=== PATIENT | female | born 2000 | race Caucasian/White ===

== ENCOUNTER 2019-02-15 20:36 | Emergency (ER) | payer MEDICAID, OTHER ==
[~2019-02-15] VITALS: Wt 45.6 kg
[2019-02-15 20:44] VITALS: BP 118/69; PULSE 89; RESP 18
[2019-02-15] MEDS ORDERED: IBUPROFEN 600 MG TAB PO ONE (22:00)
[2019-02-16] MEDS ORDERED: IBUP-1542 PO (00:18)
--- NOTE | 2019-02-17 23:48 | ERD ---
ER Documentation Chief Complaint Chief Complaint vomiting/generalize body weakness x 1 day HPI 18yo F presents with multiple complaints. Pt notes 2 episodes of vomiting earlier today with abdominal pain and right shoulder and knee pain s/p mechanical fall. Pt states to have tripped on a box landing on her right knee and then her right shoulder. She denies head trauma or LOC. She admits to feeling dizzy earlier in the day as well. Pt denies fevers, chills, SOB, CP. No cardiac hx, no known medical conditions. ROS All systems reviewed and are negative except as per history of present illness. Medications Home Meds Active Scripts Ibuprofen* (Motrin*) 600 Mg Tab, 600 MG PO Q6H PRN for PAIN AND OR ELEVATED TEMP, #30 TAB Prov:ALEKSANDR GOLDSTEIN PA-C 02/16/19 Allergies Allergies: Coded Allergies: No Known Allergy (Unverified , 02/15/19) PMhx/Soc Medical and Surgical Hx: pt denies Medical Hx, pt denies Surgical Hx Hx Alcohol Use: No Hx Substance Use: No Hx Tobacco Use: No Smoking Status: Never smoker FmHx Family History: No diabetes, No coronary disease, No other Physical Exam Vitals Vital Signs Date Temp Pulse Resp B/P (MAP) Pulse Ox O2 O2 Flow FiO2 Time Delivery Rate 02/15/19 97.4 89 18 118/69 98 20:44 (85) Physical Exam Constitutional: Well developed. Well nourished. No acute distress Head/Eyes: Atraumatic. Normocephalic. PERRL. EOMI ENT: Moist mucous membranes. Voice normal. Neck: Supple. No lymphadenopathy Cardiovascular: Regular rate and rhythm. No murmurs, rubs, or gallops. Distal pulses intact Respiratory: No respiratory distress. Normal breath sounds. No wheezes, rales, or rhonchi. Abdominal: Soft. Non-tender. No guarding, rebound, or rigidity. Non-distended. Extremities: No deformity. No clubbing, cyanosis or edema. Equal pulses x 4. Full PROM of the right shoulder with no crepitus.Sensation intact to radial, medial, ulnar distribution. Able to wiggle fingers. Full PROM of the Right knee with positive TTP of the tibial plateau. Visible edema and ecchymosis. Able to bear weight. Skin: Dry. No rashes. Warm Neurological: Alert and oriented x3. Appropriate speech, mood and affect. Face is symmetric. Speech is normal. CN II-XII intact. Moves all extremities equally. Ambulates with a strong, steady gait. Psychiatric: Normal mood. Normal affect Result Diagram: 02/15/19220802/15/192208 Results 24 hrs Laboratory Tests Test 02/15/19 22:09 White Blood Count 7.1 10^3/ul Red Blood Count 4.27 10^6/ul Hemoglobin 11.5 g/dl Hematocrit 36.8 % Mean Corpuscular Volume 86.2 fl Mean Corpuscular Hemoglobin 26.9 pg Mean Corpuscular Hemoglobin Concent 31.3 g/dl Red Cell Distribution Width 15.5 % Platelet Count 288 10^3/UL Mean Platelet Volume 10.4 fl Immature Granulocytes % 0.100 % Neutrophils % 45.3 % Lymphocytes % 43.2 % Monocytes % 7.5 % Eosinophils % 3.1 % Basophils % 0.8 % Nucleated Red Blood Cells % 0.0 /100WBC Immature Granulocytes # 0.010 10^3/ul Neutrophils # 3.2 10^3/ul Lymphocytes # 3.1 10^3/ul Monocytes # 0.5 10^3/ul Eosinophils # 0.2 10^3/ul Basophils # 0.1 10^3/ul Nucleated Red Blood Cells # 0.0 10^3/ul Sodium Level 141 mmol/L Potassium Level 4.2 mmol/L Chloride Level 106 mmol/L Carbon Dioxide Level 26 mmol/L Anion Gap 9 Blood Urea Nitrogen 12 mg/dl Creatinine 0.57 mg/dl Est Glomerular Filtrat Rate mL/min > 60 mL/min Glucose Level 99 mg/dl Calcium Level 9.2 mg/dl Total Bilirubin 0.5 mg/dl Direct Bilirubin 0.00 mg/dl Indirect Bilirubin 0.5 mg/dl Aspartate Amino Transf (AST/SGOT) 27 IU/L Alanine Aminotransferase (ALT/SGPT) 25 IU/L Alkaline Phosphatase 59 IU/L Total Protein 8.3 g/dl Albumin 4.5 g/dl Globulin 3.80 g/dl Albumin/Globulin Ratio 1.18 Lipase 174 U/L Beta HCG, Quantitative < 2.4 mIU/ml Current Medications Medications Dose Sig/Robert Start Time Status Last (Trade) Ordered Route PRN Stop Time Admin Dose Reason Admin Ibuprofen 600 mg ONCE ONCE 02/15/19 DC 02/15/19 (Motrin) PO 22:00 21:58 02/15/19 22:01 Procedures/MDM PROCEDURE: Right shoulder. FINDINGS: There is no fracture, dislocation or bone destruction. The joint spaces are within normal limits. Bone mineralization is within normal limits. There is no radiopaque foreign body or abnormal calcification. IMPRESSION: Unremarkable right shoulder. PROCEDURE: Right knee. FINDINGS: There is no fracture, dislocation or bone destruction. There is no significant joint space narrowing or effusion. Bone mineralization is within normal limits. There is no radiopaque foreign body or abnormal calcification. IMPRESSION: No evidence of fracture. MDM: This is a 18yo F who presents to ED for evaluation of right shoulder and knee pain s/p fall as well as evaluation of vomiting earlier today. Physical exam findings positive for ecchymosis of the Right knee with TTP, no other acute findings. XR imaging negative for fracture and labs unremarkable. test negative, no white count present. Pt counseled regarding findings and advised if symptoms persist or worsen to return to ED within 8hrs. Pt counseled regarding RICE for MSK symptoms. At this time there are no acute or emergent findings and pt stable for discharge home with outpatient management. Departure Diagnosis: Primary Impression: Shoulder pain Chronicity: acute Laterality: right Qualified Codes: M25.511 - Pain in right shoulder Additional Impressions: Knee pain Chronicity: acute Laterality: right Qualified Codes: M25.561 - Pain in right knee Vomiting Vomiting type: unspecified Vomiting Intractability: intractable Nausea presence: without nausea Qualified Codes: R11.11 - Vomiting without nausea Condition: Stable Patient Instructions: Knee Sprain, Shoulder Contusion, Shoulder Problems ALEKSANDR GOLDSTEIN PA-C Feb 17, 2019 23:40
== END 2019-02-16 00:24 | disposition home or self-care (01) ==
LOC: FTE 20:36
DX: M25.511 Pain in right shoulder (principal); M25.561 Pain in right knee
CPT/HCPCS: 36415; 73030; 73562; 76705; 80053; 83690; 84702; 85025; Z7502; Z7610